=== PATIENT | male | born 1985 | race American Indian/Alaskan Native ===

== ENCOUNTER 2017-03-09 16:49 | Emergency (ER) | payer SELFPAY ==
[2017-03-09 17:22] VITALS: BP 132/77; PULSE 85; RESP 14; TEMP 98.5; O2SAT 100
[2017-03-09] MEDS ORDERED: Naproxen 500 MG TAB PO ONE (17:25)
[2017-03-09] MEDS ORDERED: Absorbable Gelatin Sponge Size 12-7 TP ONE (17:26)
--- NOTE | 2017-03-09 18:00 | ED PDOC ---
Upper Extremity Pain/Injury Time Seen by Provider: 03/09/17 17:15 Chief Complaint (Nursing): Finger,Hand,&Wrist Chief Complaint (Provider): Finger laceration History Per: Patient History/Exam Limitations: no limitations Onset/Duration Of Symptoms: Hrs (x3) Current Symptoms Are (Timing): Still Present Additional Complaint(s): Daniel is a 31 y/o male who presents to the ED for evaluation of a finger laceration, sustained 3 hours ago. States he accidentally cut left index finger with a knife while at work earlier today. Denies any numbness or tingling. Tetanus shot is up to date, last received < 2 years ago. PMD: Unknown Past Medical History Reviewed: Historical Data, Nursing Documentation, Vital Signs Vital Signs: Last Vital Signs Temp 98.5 F 03/09/17 17:19 Pulse 85 03/09/17 17:19 Resp 14 03/09/17 17:19 BP 132/77 03/09/17 17:19 Pulse Ox 100 03/09/17 17:19 - Medical History PMH: Asthma - Surgical History Other surgeries: Cardiac repair - Family History Family History: States: Unknown Family Hx - Social History Current smoker - smoking cessation education provided: No Alcohol: Social Drugs: Cannabis - Home Medications Home Medications: Ambulatory Orders Medication Instructions Recorded Cephalexin [cephalexin] 500 mg PO Q6 #12 cap 03/09/17 - Allergies Allergies/Adverse Reactions: Allergies Allergy/AdvReac Type Severity Reaction Status Date / Time No Known Allergies Allergy Verified 03/09/17 17:25 Review of Systems ROS Statement: Except As Marked, All Systems Reviewed And Found Negative Musculoskeletal: Positive for: Other (Finger laceration) Neurological: Negative for: Numbness (and tingling) Physical Exam - Reviewed Nursing Documentation Reviewed: Yes Vital Signs Reviewed: Yes - Physical Exam Appears: Positive for: Well, Non-toxic, No Acute Distress Head Exam: Positive for: ATRAUMATIC, NORMAL INSPECTION, NORMOCEPHALIC Skin: Positive for: Normal Color, Warm, Dry Eye Exam: Positive for: EOMI, Normal appearance, PERRL Neck: Positive for: Normal, Supple Extremity: Positive for: Normal ROM, Other (Small superficial avulsion with non- pulsatile active bleeding at the left index finger. Portion of nail is avulsed.) Neurologic/Psych: Positive for: Alert, Oriented - ECG O2 Sat by Pulse Oximetry: 100 (RA) Pulse Ox Interpretation: Normal Medical Decision Making Medical Decision Making: Procedure: --Irrigated the wound with normal saline --Placed gel foam dressing Time: 17:26 Clinical Impression: Skin avulsion Upon provider evaluation patient is medically stable, and requires no further treatment in the ED at this time. Patient will be discharged home with Rx for cephalexin. Counseling was provided and all questions were answered regarding diagnosis and need for follow up with PMD. There is agreement to discharge plan. Return if symptoms persist or worsen. Scribe Attestation: Documented by Paty Pagan, acting as a scribe for Benny Ramirez PA-C Provider Scribe Attestation: All medical record entries made by the Scribe were at my direction and personally dictated by me. I have reviewed the chart and agree that the record accurately reflects my personal performance of the history, physical exam, medical decision making, and the department course for this patient. I have also personally directed, reviewed, and agree with the discharge instructions and disposition. Disposition - Clinical Impression Clinical Impression: Skin avulsion - Patient ED Disposition Is Patient to be Admitted: No Counseled Patient/Family Regarding: Diagnosis, Need For Followup, Rx Given - Disposition Referrals: [facility] [Outside] [facility] [Outside] Disposition: Routine/Home Disposition Time: 17:26 Condition: STABLE Additional Instructions: Keep wound clean and dry. Prescriptions: Cephalexin [cephalexin] 500 mg PO Q6 #12 cap Instructions: Skin Avulsion (ED) Forms: [employer] (Indonesian), [facility] ED School/Work Excuse Print Language: HEBREW
== END 2017-03-09 17:48 | disposition home or self-care (01) ==
LOC: H.ER 16:49
DX: S61.201A Unspecified open wound of left index finger without damage to nail, initial encounter (principal); W26.0XXA Contact with knife, initial encounter; Y99.0 Civilian activity done for income or pay

== ENCOUNTER 2017-05-30 13:55 | Emergency (ER) | payer OTHER ==
[2017-05-30 14:04] VITALS: BP 144/75; PULSE 94; RESP 18; TEMP 97.3; O2SAT 98
[2017-05-30] MEDS ORDERED: Acetaminophen-Codeine 300/30 mg Tab PO ONE (14:39)
--- NOTE | 2017-05-30 14:45 | ED PDOC ---
HPI: Dental Pain/Injury Time Seen by Provider: 05/30/17 14:07 Chief Complaint (Nursing): Dental Pain Chief Complaint (Provider): dental pain History Per: Patient History/Exam Limitations: no limitations Additional Complaint(s): 31yo M in ER for eval of dental pain x couple of days made worse in past day with Headache sore throat and subject fever pain on the left side of upper and lower jaw. t with hx of poor dentition. Past Medical History Reviewed: Historical Data, Nursing Documentation, Vital Signs Vital Signs: Last Vital Signs Temp 97.3 F L 05/30/17 14:03 Pulse 94 H 05/30/17 14:03 Resp 18 05/30/17 14:03 BP 144/75 05/30/17 14:03 Pulse Ox 98 05/30/17 14:03 - Medical History PMH: Asthma - Family History Family History: States: Unknown Family Hx - Home Medications Home Medications: Ambulatory Orders Medication Instructions Recorded Cephalexin [cephalexin] 500 mg PO Q6 #12 cap 03/09/17 Hydrocortisone 2.5% (Rectal) 30 applic [place] BID #1 tube 04/27/17 [Anusol-HC] Amoxicillin [Amoxil 500 mg Cap] 500 mg PO BID #14 cap 05/30/17 Tramadol HCl [Ultram] 50 mg PO Q6 #15 tab 05/30/17 - Allergies Allergies/Adverse Reactions: Allergies Allergy/AdvReac Type Severity Reaction Status Date / Time shellfish derived Allergy ANAPHYLAXIS Verified 05/30/17 14:05 Review of Systems ROS Statement: Except As Marked, All Systems Reviewed And Found Negative Constitutional: Positive for: Chills ENT: Positive for: Mouth Pain Physical Exam - Reviewed Nursing Documentation Reviewed: Yes Vital Signs Reviewed: Yes - Physical Exam Appears: Positive for: Well, Non-toxic, No Acute Distress Head Exam: Positive for: ATRAUMATIC, NORMAL INSPECTION, NORMOCEPHALIC Skin: Positive for: Normal Color, Warm, DRY Eye Exam: Positive for: Normal appearance, EOMI, PERRL ENT: Positive for: Other (mouth: upper and lower jaw-poor dentition noted to post. molar teeth. ) Cardiovascular/Chest: Positive for: Regular Rate, Rhythm Respiratory: Positive for: CNT, Normal Breath Sounds Gastrointestinal/Abdominal: Positive for: Normal Exam, Bowel Sounds, Soft Back: Positive for: Normal Inspection Extremity: Positive for: Normal ROM Neurologic/Psych: Positive for: Alert, Oriented - ECG O2 Sat by Pulse Oximetry: 98 Medical Decision Making Medical Decision Making: tooth decay/abscess formation. pt given amoxicillin and pain control advised to f.u with dentist as soon a possible for extraction. Disposition - Clinical Impression Clinical Impression: Dental caries, Dental trauma - Patient ED Disposition Is Patient to be Admitted: No Counseled Patient/Family Regarding: Diagnosis, Need For Followup, Rx Given - Disposition Disposition: Routine/Home Disposition Time: 14:40 Condition: STABLE Additional Instructions: you must see a dentist as soon as possible for extraction Prescriptions: Amoxicillin [Amoxil 500 mg Cap] 500 mg PO BID #14 cap Tramadol HCl [Ultram] 50 mg PO Q6 #15 tab Instructions: Toothache (ED), Dental Caries (ED) Forms: [facility] (Malay)
== END 2017-05-30 14:46 | disposition home or self-care (01) ==
LOC: H.ER 13:55
DX: K02.9 Dental caries, unspecified (principal); J45.909 Unspecified asthma, uncomplicated

== ENCOUNTER 2017-07-22 10:55 | Emergency (ER) | payer OTHER ==
[2017-07-22 11:27] VITALS: BP 142/86; PULSE 96; RESP 16; TEMP 97; O2SAT 97
[2017-07-22] MEDS ORDERED: cefTRIAXone (Rocephin) 250 mg Inj IM STA (11:32)
[2017-07-22] MEDS ORDERED: Azithromycin 200 mg/5 ml Susp (22.5 ml) PO STA (11:33)
--- NOTE | 2017-07-22 12:14 | ED PDOC ---
HPI: Male Pain Time Seen by Provider: 07/22/17 11:16 Chief Complaint (Nursing): Male Genitourinary Chief Complaint (Provider): Male Genitourinary History Per: Patient History/Exam Limitations: no limitations Onset/Duration Of Symptoms: Persistent (x3 weeks) Current Symptoms Are (Timing): Still Present Additional Complaint(s): Daniel Cowan is a 31 year old male that presents to the ED with a chief complaint of having a persistent STD that he has been experiencing for about three weeks. patient reports that 3 weeks ago, his partner was diagnosed with chlamydia, and as a result he was also tested and found to have it. He was seen at [facility] and treated with oral medication. He reports that his symptoms are persistent, and that he still has some burning, discomfort, and scrotal heaviness and soreness on both sides. He denies any urethral discharge, fevers, chills, rash. or abdominal pain. He additionally states that his partner was found to have trichomoniasis and wants to get tested for it as well. Past Medical History Reviewed: Historical Data, Nursing Documentation, Vital Signs Vital Signs: Last Vital Signs Temp 97 F L 07/22/17 11:24 Pulse 96 H 07/22/17 11:24 Resp 16 07/22/17 11:24 BP 142/86 07/22/17 11:24 Pulse Ox 97 07/22/17 11:24 - Medical History PMH: Asthma - Family History Family History: States: Unknown Family Hx - Home Medications Home Medications: Ambulatory Orders Medication Instructions Recorded Cephalexin [cephalexin] 500 mg PO Q6 #12 cap 03/09/17 Hydrocortisone 2.5% (Rectal) 30 applic [place] BID #1 tube 04/27/17 [Anusol-HC] Amoxicillin [Amoxil 500 mg Cap] 500 mg PO BID #14 cap 05/30/17 Tramadol HCl [Ultram] 50 mg PO Q6 #15 tab 05/30/17 - Allergies Allergies/Adverse Reactions: Allergies Allergy/AdvReac Type Severity Reaction Status Date / Time shellfish derived Allergy ANAPHYLAXIS Verified 07/22/17 11:27 Review of Systems Constitutional: Negative for: Fever, Chills Genitourinary Male: Positive for: Scrotal Pain (b/l scrotal heaviness and soreness), Other (urinary discomfort). Negative for: Penile Discharge Skin: Negative for: Rash Physical Exam - Reviewed Nursing Documentation Reviewed: Yes Vital Signs Reviewed: Yes - Physical Exam Appears: Positive for: Non-toxic, No Acute Distress Head Exam: Positive for: ATRAUMATIC, NORMOCEPHALIC Skin: Positive for: Normal Color, Warm Eye Exam: Positive for: Normal appearance, EOMI, PERRL Cardiovascular/Chest: Positive for: Regular Rate, Rhythm. Negative for: Murmur Respiratory: Positive for: Normal Breath Sounds. Negative for: Wheezing Gastrointestinal/Abdominal: Positive for: Normal Exam, Soft. Negative for: Tenderness Male Genital Exam: Positive for: scrotum tenderness (R), scrotum tenderness (L) . Negative for: erythema, urethral discharge Back: Positive for: Normal Inspection. Negative for: L CVA Tenderness, R CVA Tenderness Extremity: Positive for: Normal ROM Neurologic/Psych: Positive for: Alert, Oriented. Negative for: Motor/Sensory Deficits - ECG O2 Sat by Pulse Oximetry: 97 (RA) Pulse Ox Interpretation: Normal Medical Decision Making Medical Decision Making: Impression: Chlamydia/Possible trichomoniasis Plan: * Urine dip * Urine culture * Chlamydia/GC * Zithro 1000 mg PO * Rocephin 250 mg IM * Flagyl 2000 mg PO * Reevaluation Scribe Attestation: Documented by Maia Crooks, acting as a scribe for Linda Guo MD. Provider Scribe Attestation: All medical record entries made by the Scribe were at my direction and personally dictated by me. I have reviewed the chart and agree that the record accurately reflects my personal performance of the history, physical exam, medical decision making, and the department course for this patient. I have also personally directed, reviewed, and agree with the discharge instructions and disposition. Disposition - Clinical Impression Clinical Impression: STD exposure - Patient ED Disposition Is Patient to be Admitted: No Doctor Will See Patient In The: Office Counseled Patient/Family Regarding: Diagnosis, Need For Followup - Disposition Referrals: [facility] [Outside] [facility] [Outside] Disposition: Routine/Home Disposition Time: 12:05 Condition: STABLE Additional Instructions: Abstain from sexual activity until STD test results are normal. Instructions: Sexually Transmitted Diseases (ED) Forms: [facility] (Palauan) - POA Present On Arrival: None
== END 2017-07-22 12:50 | disposition home or self-care (01) ==
LOC: H.ER 10:55
DX: N50.82 Scrotal pain (principal); J45.909 Unspecified asthma, uncomplicated; Z20.2 Contact with and (suspected) exposure to infections with a predominantly sexual mode of transmission
CPT/HCPCS: 87086; 87491; 87591; 96372; 99282; J0696

== ENCOUNTER 2018-06-12 15:44 | Emergency (ER) | payer MEDICAID ==
[2018-06-12 15:52] VITALS: BP 124/67; PULSE 76; RESP 16; TEMP 98.8; O2SAT 97
[2018-06-12] MEDS ORDERED: Sodium Chloride 0.9% 1,000 ML IV SCH (16:15)
[2018-06-12 16:54] LABS: BASO % 0.6 % (0.0-2.0); EOS % 0.9 % (0.0-4.0); HEMOGLOBIN 13.9 g/dL (12.0-18.0); LYMPH # 1.5 K/uL (1.0-4.3); LYMPH % 44.2 % (20.0-40.0); MEAN CELL VOLUME 96.5 fl (80.0-94.0); MEAN CORPUSCULAR HEMOGLOBIN 32.2 pg (27.0-31.0); MEAN CORPUSCULAR HGB CONC 33.4 g/dL (33.0-37.0); MEAN PLATELET VOLUME 10.5 fl (7.2-11.7); MONO # 0.4 K/uL (0.0-0.8); MONO % 11.2 % (0.0-10.0); NEUT # 1.4 K/uL (1.8-7.0); NEUT % 43.1 % (50.0-75.0); NRBC % 0.1 % (0.0-0.0); RBC 4.3 Mil/uL (4.40-5.90); RED CELL DISTRIBUTION WIDTH 12.2 % (11.5-14.5); WHITE BLOOD COUNT 3.3 K/uL (4.8-10.8)
[2018-06-12 17:00] LABS: INR 1.1
[2018-06-12 17:03] LABS: PARTIAL THROMBOPLASTIN TIME 36.7 Seconds (25.6-37.1)
[2018-06-12 17:10] LABS: ALB/GLOB RATIO 1.4 (1.0-2.1); ALBUMIN 4.6 g/dL (3.5-5.0); ALT/SGPT 33 U/L (21-72); AST/SGOT 41 U/L (17-59); BLOOD UREA NITROGEN 15 mg/dl (9-20); CALCIUM 9.5 mg/dL (8.4-10.2); GFR NON-AFRICAN AMERICAN > 60
--- NOTE | 2018-06-12 17:47 | ED PDOC ---
HPI: Chest Pain Time Seen by Provider: 06/12/18 16:10 Chief Complaint (Nursing): Chest Pain Past Medical History Vital Signs: Last Vital Signs Temp 98.8 F 06/12/18 15:51 Pulse 76 06/12/18 15:51 Resp 16 06/12/18 15:51 BP 124/67 06/12/18 15:51 Pulse Ox 97 06/12/18 15:51 - Medical History PMH: Asthma, HTN - Family History Family History: States: Unknown Family Hx - Home Medications Home Medications: Ambulatory Orders Medication Instructions Recorded Cephalexin [cephalexin] 500 mg PO Q6 #12 cap 03/09/17 Hydrocortisone 2.5% (Rectal) 30 applic [place] BID #1 tube 04/27/17 [Anusol-HC] Amoxicillin [Amoxil 500 mg Cap] 500 mg PO BID #14 cap 05/30/17 Tramadol HCl [Ultram] 50 mg PO Q6 #15 tab 05/30/17 - Allergies Allergies/Adverse Reactions: Allergies Allergy/AdvReac Type Severity Reaction Status Date / Time shellfish derived Allergy ANAPHYLAXIS Verified 06/12/18 15:47 - Laboratory Results Result Diagrams: 06/12/18 16:49 06/12/18 16:49 - ECG O2 Sat by Pulse Oximetry: 97 Medical Decision Making Medical Decision Makin Repeat EKG: SB @ 56 bpm (-) ST elevation (-) T wave inversion, QTc 393 Labs reviewed. CBC grossly unremarkable. CMP unremarkable. Troponin WNL. CPK elevated. CXR: no acute disease as read by Bouchra CERVANTES On re-evaluation patient denies any current symptoms and resting comfortably. Case discussed with Dr Cotto, who recommends repeat troponin. Disposition - Disposition
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
--- NOTE | 2018-06-12 17:55 | RAD ---
HISTORY: chest pain COMPARISON: No prior. TECHNIQUE: Chest PA and lateral FINDINGS: LUNGS: No focal consolidation. Please note that chest x-ray has limited sensitivity for the detection of pulmonary masses. PLEURA: No significant pleural effusion identified. No definite pneumothorax . CARDIOVASCULAR: Median sternotomy wires. Heart size appears within normal limits. No atherosclerotic calcification present. OSSEOUS STRUCTURES: No acute osseous abnormality identified. VISUALIZED UPPER ABDOMEN: Unremarkable. OTHER FINDINGS: None. IMPRESSION: No focal consolidation identified.
[2018-06-12 19:24] LABS: BARBITURATES, UR NEGATIVE (NEGATIVE); BENZODIAZEPINES, UR NEGATIVE (NEGATIVE); OPIATES, UR NEGATIVE (NEGATIVE); PHENCYCLIDINE, UR NEGATIVE (NEGATIVE)
--- NOTE | 2018-06-13 07:00 | CARD ---
APPROVED REPORT Date of service: 06/12/2018 EKG Measurement Heart [id number] <Conclusion> Sinus bradycardia Otherwise normal ECG
--- NOTE | 2018-06-13 07:01 | CARD ---
APPROVED REPORT Date of service: 06/12/2018 EKG Measurement Heart [id number] <Conclusion> Normal sinus rhythm T wave abnormality, consider anterior ischemia Abnormal ECG
== END 2018-06-12 18:22 | disposition left against medical advice (07) ==
LOC: H.ER 15:44
DX: R07.89 Other chest pain (principal); I10 Essential (primary) hypertension
CPT/HCPCS: 71046; 80053; 80324; 80345; 80346; 80349; 80353; 80358; 80361; 82550; 83992; 84484; 85025; 85610; 85730; 93005; 96372; 99285; J1885; J7030